=== PATIENT | male | born 1985 | race Caucasian/White ===

== ENCOUNTER 2017-09-15 16:47 | Emergency (ER) | payer MEDICAID ==
[2017-09-15] MEDS: LORAZEPAM 2 MG INJ IM (18:38)
[2017-09-15] MEDS: hydrOXYzine HCL 25 MG TAB PO (20:09)
== END 2017-09-15 20:49 | disposition home or self-care (01) ==
LOC: FTE 16:47
DX: F41.9 Anxiety disorder, unspecified (principal)
CPT/HCPCS: 96372; 99284-25

== ENCOUNTER 2017-09-29 21:31 | Emergency (ER) | payer SELFPAY, MEDICAID | END 2017-09-30 01:00 | disposition left against medical advice (07) | LOC: FTE 21:31 | DX: Z53.21 Procedure and treatment not carried out due to patient leaving prior to being seen by health care provider (principal) ==

== ENCOUNTER 2018-02-10 15:40 | Emergency (ER) | payer MEDICAID ==
[2018-02-10] MEDS: LORAZEPAM 1 MG TAB PO (16:00)
== END 2018-02-10 17:20 | disposition home or self-care (01) ==
LOC: E/R 15:40
DX: F41.9 Anxiety disorder, unspecified (principal)
CPT/HCPCS: 99283; Z7502